=== PATIENT | female | born 1985 | race Caucasian/White ===

== ENCOUNTER 2025-02-10 09:25 | Day surgery (SDC) | payer OTHER ==
[~2025-02-10] VITALS: Ht 154.9 cm; Wt 70.4 kg
[2025-02-10] MEDS ORDERED: CeFAZolin Sodium 2,000 MG in NS 100 ML IV SCH (09:55)
[2025-02-10] MEDS ORDERED: Metoclopramide HCl 5MG / ML 2ML Vial IV PRN (10:05)
[2025-02-10] MEDS ORDERED: HYDROmorphone HCl/Pf 1MG SYR IV PRN (10:05)
[2025-02-10] MEDS ORDERED: FentaNYL Citrate 50 MCG/ML 2 ML Injection IV PRN (10:05)
[2025-02-10] MEDS ORDERED: Morphine Sulfate 4 MG/1 ML Injection IV PRN (10:05)
[2025-02-10] MEDS ORDERED: Ondansetron HCl 2 MG / ML 2ML Vial IV PRN (10:05)
--- NOTE | 2025-02-10 10:09 | NUR ---
History, Chart, Medications and Allergies reviewed before start of procedure. Lungs clear T/O to Auscultation. Patient confirms NPO status and agrees with scheduled surgery. Patient reports completing Chlorhexadine shower X2 prior to admission to hospital.
[2025-02-10 10:17] LABS: BASOPHILS ABSOLUTE AUTO 0.03 K/mm3 (0.00-0.23); BASOPHILS PERCENT AUTO 0 % (0-2); EOSINOPHILS ABSOLUTE AUTO 0.26 K/mm3 (0.00-0.68); EOSINOPHILS PERCENT AUTO 3 % (0-6); Hematocrit 38.8 % (33.0-51.0); Hemoglobin 13.1 g/dL (11.5-16.0); IMMATURE GRAN ABSOLUTE AUTO 0.01 K/mm3 (0.00-0.10); IMMATURE GRAN PERCENT AUTO 0 % (0-1); LYMPHOCYTES ABSOLUTE AUTO 2.64 K/mm3 (0.84-5.20); LYMPHOCYTES PERCENT AUTO 34 % (21-46); MONOCYTES ABSOLUTE AUTO 0.56 K/mm3 (0.16-1.47); MONOCYTES PERCENT AUTO 7 % (4-13); Mean Corpuscular HGB Conc 33.8 g/dL (31.5-36.5); Mean Corpuscular Volume 85 fL (80-100); NEUTROPHILS ABSOLUTE AUTO 4.25 K/mm3 (1.96-9.15); NEUTROPHILS PERCENT AUTO 55 % (41-73); NRBC ABSOLUTE 0.00 K/mm3 (0.00-0.02); NRBC Auto 0.0 /100 WBC (0.0-0.2); Platelet Count 322 K/mm3 (150-400); RDW Coefficient Variation 11.9 % (11.7-14.2); RDW Standard Deviation 36.7 fL (35.1-46.3)
[2025-02-10] MEDS ORDERED: FentaNYL Citrate 50 MCG/ML 2 ML Injection ONE (10:29)
[2025-02-10] MEDS ORDERED: Bupivacaine 0.5% W/EPI 1:200000 SDV 30 ML Vial ONE (10:31)
[2025-02-10] MEDS ORDERED: Midazolam HCl 1MG / ML 2ML Vial ONE (10:58)
[2025-02-10] MEDS ORDERED: Metoclopramide HCl 5MG / ML 2ML Vial ONE (11:27)
[2025-02-10] MEDS ORDERED: Ondansetron HCl 2 MG / ML 2ML Vial ONE (11:27)
[2025-02-10] MEDS ORDERED: Sugammadex Sodium 200 MG/2ML SDV (100 MG/ML) ONE (12:15)
[2025-02-10] MEDS ORDERED: Ketorolac Tromethamine 30mg Vial ONE (12:30)
[2025-02-10 12:40] VITALS: BP 148/90
[2025-02-10] MEDS ORDERED: HYDROmorphone HCl/Pf 1MG SYR ONE (12:43)
[2025-02-10 12:45] VITALS: BP 149/80
[2025-02-10 12:50] VITALS: BP 134/84
[2025-02-10 12:55] VITALS: BP 129/85
[2025-02-10 13:02] VITALS: BP 119/71
[2025-02-10] MEDS ORDERED: OxyCODONE 5 mg/Acetamin 325 mg TABLET PO PRN (13:05)
[2025-02-10 13:13] VITALS: BP 111/77
--- NOTE | 2025-02-10 13:26 | NUR ---
Discharge instructions reviewed with patient. Patient verbalizes understanding. Copy given to patient to take home. Patient States Post-Procedure ride home has been arranged. Discharged via wheelchair to private car for ride home.
== END 2025-02-10 13:31 | disposition home or self-care (01) ==
LOC: ORSCMMR 09:25 → ORD 11:45 → ORSCMMR 11:45
PROVIDERS: Obstetrics & Gynecology
PROC: 0UT04ZZ Resection of Right Ovary, Percutaneous Endoscopic Approach (ICD-10-PCS; principal; 2025-02-10 11:45)
DX: N83.201 Unspecified ovarian cyst, right side (principal); R10.31 Right lower quadrant pain; N80.352 Endometriosis of the left pelvic sidewall, unspecified depth; K66.0 Peritoneal adhesions (postprocedural) (postinfection)
CPT/HCPCS: 85025; 88305; A9270; J0690; J1171; J1885; J2250; J2405; J2704; J2765; J3010; J7120